=== PATIENT | female | born 1950 | race African-American/Black ===

== ENCOUNTER 2021-09-26 16:13 | Outpatient (CLI) | payer MEDICARE, MEDICAID ==
[2021-09-25 14:42] VITALS: BMI 29.2
[2021-09-26 17:07] LABS: Hemoglobin 9.5 g/dL (12.0-15.5); Mean Corpuscular HGB CONC 31.8 g/dL (32.0-36.0); Mean Corpuscular Hemoglobin 29.4 pg (27.0-33.0); Mean Corpuscular Volume 92.6 fl (81.6-98.3); Mean Platelet Volume 9.9 fl (7.4-10.4); Platelet Count 201 10x3/uL (150-450); RBC Distribution Width 13.4 % (11.5-14.5); Red Blood Cell (RBC) Count 3.23 10x6/uL (3.90-5.03); White Blood Cell (WBC) Count 7.5 10x3/uL (3.5-10.5)
[2021-09-26 17:15] LABS: PTT 26.2 sec (22.0-33.0); Prothrombin Time 10.5 sec (9.5-12.1)
[2021-09-27 21:02] LABS: SARS-CoV-2 PCR by NAA Not Detected (NotDetected)
== END 2021-09-26 16:14 | disposition home or self-care (01) ==
LOC: LABBT 16:13
PROVIDERS: ATTEND Neurological Surgery
DX: Z01.818 Encounter for other preprocedural examination (principal); M50.01 Cervical disc disorder with myelopathy, high cervical region; Z20.822 Contact with and (suspected) exposure to COVID-19
CPT/HCPCS: 85027; 85610; 85730; U0003; U0005; 93005; 93010

== ENCOUNTER 2021-11-29 13:15 | Outpatient (CLI) | payer OTHER, MEDICAID, MEDICARE ==
[2021-11-29 15:15] LABS: Hemoglobin 9.4 g/dL (12.0-15.5); Mean Corpuscular HGB CONC 32.4 g/dL (32.0-36.0); Mean Corpuscular Hemoglobin 29.3 pg (27.0-33.0); Mean Corpuscular Volume 90.3 fl (81.6-98.3); Mean Platelet Volume 10.5 fl (7.4-10.4); Platelet Count 221 10x3/uL (150-450); RBC Distribution Width 14.4 % (11.5-14.5); Red Blood Cell (RBC) Count 3.21 10x6/uL (3.90-5.03); White Blood Cell (WBC) Count 6.2 10x3/uL (3.5-10.5)
[2021-11-29 15:25] LABS: PTT 26.8 sec (22.0-33.0); Prothrombin Time 10.6 sec (9.5-12.1)
== END 2021-11-29 13:16 | disposition home or self-care (01) ==
LOC: LABBT 13:15
PROVIDERS: ATTEND Surgery
DX: Z01.812 Encounter for preprocedural laboratory examination (principal); M43.16 Spondylolisthesis, lumbar region; M48.061 Spinal stenosis, lumbar region without neurogenic claudication; Z20.822 Contact with and (suspected) exposure to COVID-19
CPT/HCPCS: 85027; 85610; 85730; U0003; U0005

== ENCOUNTER 2021-12-02 06:18 | Inpatient (IN) | payer MEDICARE, MEDICAID ==
[2021-11-28 12:58] VITALS: BMI 31.1
[2021-12-02] MEDS ORDERED: Bupivacaine PF 0.5% 30 ML VIAL ONE (06:26)
[2021-12-02] MEDS ORDERED: Thrombin 5000 UNITS/5 ML VIAL ONE (06:26)
[2021-12-02] MEDS ORDERED: EPINEPHrine 1 MG/ML AMP ONE (06:26)
[2021-12-02] MEDS ORDERED: Neomycin-Polymyxin 1 ML AMP ONE (06:26)
[2021-12-02] MEDS ORDERED: fentaNYL Citrate/PF 100 MCG/2 ML SYRINGE ONE ×2 (06:31→10:06)
[2021-12-02] MEDS ORDERED: Milk Of Magnesia 30 ML UDCUP PO PRN (06:36)
[2021-12-02] MEDS ORDERED: HYDROcodone/Acetaminophen 7.5/325 mg Tablet PO PRN (06:36)
[2021-12-02] MEDS ORDERED: Cyclobenzaprine 10 MG TAB PO PRN (06:36)
[2021-12-02] MEDS ORDERED: Bisacodyl 10 MG SUPP PR PRN (06:36)
[2021-12-02] MEDS ORDERED: Ondansetron PF 4 MG/2 ML Vial IVP PRN (06:36)
[2021-12-02] MEDS ORDERED: Acetaminophen 325 MG TAB PO PRN (06:36)
[2021-12-02] MEDS ORDERED: Mag-Al 1200 mg/1200 mg/30 ML UDCUP PO PRN (06:36)
[2021-12-02] MEDS ORDERED: Acetaminophen/Codeine 30-300mg Tablet PO PRN (06:36)
[2021-12-02] MEDS ORDERED: Sodium Chloride 0.9% 100 ML ONE (06:40)
[2021-12-02] MEDS ORDERED: CEFAZOLIN 2 GM VIAL ONE (06:40)
[2021-12-02] MEDS ORDERED: Lidocaine 1% PF 5 ML VIAL ONE (07:05)
[2021-12-02] MEDS ORDERED: Rocuronium Bromide 10 MG/ML (10ML VIAL) ONE (07:05)
[2021-12-02] MEDS ORDERED: Dexamethasone 20 MG/5 ML VIAL ONE (07:05)
[2021-12-02] MEDS ORDERED: Calcium Chloride 1 GM/10 ML Abboject SYRINGE ONE (07:05)
[2021-12-02] MEDS ORDERED: Glycopyrrolate 0.2 MG/ML 5 ML SYRINGE ONE (07:05)
[2021-12-02] MEDS ORDERED: PROPOFOL 200 MG/20 ML VIAL ONE (07:05)
[2021-12-02] MEDS ORDERED: Ondansetron PF 4 MG/2 ML Vial ONE (07:05)
[2021-12-02] MEDS ORDERED: PHENYLEPHRINE-NS 100 MCG/ML 10 ML SYRINGE ONE (07:05)
[2021-12-02] MEDS ORDERED: Vecuronium 10 MG VIAL ONE (07:05)
[2021-12-02] MEDS ORDERED: Labetalol HCl 100 MG/20 ML VIAL ONE (07:05)
[2021-12-02] MEDS ORDERED: Albumin 5% 500 ML ONE (09:42)
[2021-12-02] MEDS ORDERED: Phenylephrine 10 MG/ML VIAL ONE (10:20)
[2021-12-02] MEDS ORDERED: Rocuronium Bromide 50 MG/5 ML VIAL ONE (11:32)
[2021-12-02] MEDS ORDERED: HYDROmorphone 2 MG/ML VIAL ONE (14:32)
[2021-12-02] MEDS ORDERED: Promethazine HCl 25 MG/ML VIAL IM PRN (15:45)
[2021-12-02] MEDS ORDERED: Ondansetron HCl/PF 4 MG/2 ML Vial IVP PRN (15:45)
[2021-12-02] MEDS ORDERED: HYDROmorphone 2 MG/ML VIAL SLOW IVP PRN (15:45)
[2021-12-02] MEDS ORDERED: Promethazine HCl 25 MG/ML VIAL IVPB PRN (15:45)
[2021-12-02 16:17] LABS: Hemoglobin 9.6 g/dL (12.0-16.0)
[2021-12-02 16:26] LABS: Platelet Count 176 thou/uL (130-400)
[2021-12-02] MEDS ORDERED: Fentanyl 100 MCG/2 ML VIAL ONE (16:54)
[2021-12-02] MEDS: Morphine 2 MG/ML VIAL SLOW IVP PRN (21:45)
[2021-12-02] MEDS: CEFAZOLIN 2 GM in Sodium Chloride 0.9% 100 ML IVPB SCH ×2 (21:56→21:58)
[2021-12-02] MEDS: Sodium Chloride 0.9% 1,000 ML IV SCH ×2 (21:56)
[2021-12-03] MEDS: HYDROcodone/Acetaminophen 10/325 mg Tablet PO PRN ×4 (04:46→19:32)
[2021-12-03 05:24] LABS: #Lymphocytes 1.8 thou/uL (1.20-3.40); #Neutrophils 9.1 thou/uL (1.40-6.50); %Basophils 0.2 % (0.0-1.0); %Eosinophils 0.3 % (0.0-10.0); %Lymphocytes 15.3 % (21.0-51.0); %Monocytes 8.2 % (0.0-10.0); Hemoglobin 7.7 g/dL (12.0-16.0); Mean Corpuscular HGB CONC 32.9 g/dL (32.0-36.0); Mean Corpuscular Hemoglobin 30.2 pg (27.0-31.0); Mean Corpuscular Volume 91.7 fL (78.0-98.0); Platelet Count 152 thou/uL (130-400); RBC Distribution Width 13.9 % (11.5-14.5); Red Blood Cell (RBC) Count 2.56 mill/uL (4.20-5.40)
[2021-12-03 05:46] LABS: Anion Gap 13 mmol/L (10-20); BUN (Urea Nitrogen) 24 mg/dL (9.8-20.1); Calc. Creatinine Clearance 49 mL/min (70-130); Calcium 8.3 mg/dL (7.8-10.44); Carbon Dioxide 21 mmol/L (23-31); Chloride 109 mmol/L (98-107); Glucose 107 mg/dL (80-115); Potassium 4.5 mmol/L (3.5-5.1); Sodium 138 mmol/L (136-145)
[2021-12-03] MEDS: CEFAZOLIN 2 GM in Sodium Chloride 0.9% 100 ML IVPB SCH ×3 (07:56→21:28)
[2021-12-03] MEDS: Furosemide 40 MG TAB PO SCH ×2 (08:00→12:54)
[2021-12-03] MEDS: Escitalopram Oxalate 20 mg Tablet PO SCH (08:01)
[2021-12-03] MEDS: Carvedilol 25 MG TAB PO SCH ×2 (08:01→20:01)
[2021-12-03] MEDS: Amlodipine 5 MG TAB PO SCH (08:01)
[2021-12-03] MEDS: Chloraseptic Spray 180 ml Bottle PO PRN ×3 (08:02→21:28)
[2021-12-03] MEDS: Sodium Chloride 0.9% 1,000 ML IV SCH (11:41)
[2021-12-03] MEDS: Atorvastatin Calcium 20 MG TAB PO SCH (20:01)
[2021-12-03] MEDS: Latanoprost 0.005% Ophth Soln 2.5 ml Bottle L EYE SCH (21:32)
[2021-12-04] MEDS: HYDROcodone/Acetaminophen 10/325 mg Tablet PO PRN (00:45)
[2021-12-04] MEDS: Sodium Chloride 0.9% 1,000 ML IV SCH ×2 (00:46→13:23)
[2021-12-04] MEDS: CEFAZOLIN 2 GM in Sodium Chloride 0.9% 100 ML IVPB SCH ×3 (05:54→21:38)
[2021-12-04] MEDS: Morphine 2 MG/ML VIAL SLOW IVP PRN ×5 (06:39→21:38)
[2021-12-04] MEDS ORDERED: Loperamide HCl 2 MG CAP PO PRN (08:51)
[2021-12-04] MEDS ORDERED: Sodium Chloride 0.65% Nasal 44 ML BOT EA NARE PRN (08:51)
[2021-12-04] MEDS ORDERED: Moisturizing Cream (Eucerin) 113 GM JAR TOP PRN (08:51)
[2021-12-04] MEDS ORDERED: Artificial Tear Sol 15 ML BOT EA EYE PRN (08:51)
[2021-12-04] MEDS ORDERED: GUAIFENESIN SF SOLN 200 MG/10 ML UDCUP PO PRN (08:51)
[2021-12-04] MEDS ORDERED: Zolpidem Tartrate 5 MG TAB PO PRN (08:51)
[2021-12-04] MEDS ORDERED: Calcium Carbonate 500 MG ChewTAB PO PRN (08:51)
[2021-12-04] MEDS ORDERED: hydrALAZINE 20 MG/ML VIAL SLOW IVP PRN (08:51)
[2021-12-04] MEDS ORDERED: Cepastat Lozenges 1 LOZ PO PRN (08:51)
[2021-12-04] MEDS: Amlodipine 5 MG TAB PO SCH (09:05)
[2021-12-04] MEDS: Carvedilol 25 MG TAB PO SCH ×2 (09:05→21:38)
[2021-12-04] MEDS: Escitalopram Oxalate 20 mg Tablet PO SCH (09:05)
[2021-12-04] MEDS: Furosemide 40 MG TAB PO SCH ×2 (09:05→15:21)
[2021-12-04 09:22] LABS: #Basophils 0.1 thou/uL (0.0-0.2); #Eosinphils 0.4 thou/uL (0.0-0.7); #Lymphocytes 1.4 thou/uL (1.20-3.40); #Monocytes 0.6 thou/uL (0.11-0.59); #Neutrophils 8.9 thou/uL (1.40-6.50); %Basophils 0.5 % (0.0-1.0); %Monocytes 5.3 % (0.0-10.0); %Neutrophils 78.2 % (42.0-75.0); Hemoglobin 9.8 g/dL (12.0-16.0); Mean Corpuscular HGB CONC 33.4 g/dL (32.0-36.0); Mean Corpuscular Hemoglobin 29.9 pg (27.0-31.0); Mean Corpuscular Volume 89.4 fL (78.0-98.0); Mean Platelet Volume 7.9 fL (7.4-10.4); Platelet Count 133 thou/uL (130-400); Red Blood Cell (RBC) Count 3.28 mill/uL (4.20-5.40); White Blood Cell (WBC) Count 11.3 thou/uL (4.8-10.8)
[2021-12-04 09:41] LABS: Anion Gap 13 mmol/L (10-20); BUN (Urea Nitrogen) 19 mg/dL (9.8-20.1); Calc. Creatinine Clearance 51 mL/min (70-130); Calcium 8.8 mg/dL (7.8-10.44); Carbon Dioxide 24 mmol/L (23-31); Chloride 107 mmol/L (98-107); Glucose 114 mg/dL (80-115); Potassium 4.1 mmol/L (3.5-5.1); Sodium 140 mmol/L (136-145)
[2021-12-04 12:58] LABS: Bacteria/HPF None Seen HPF (None Seen); RBC/HPF 0-3 HPF (0-3); Squamous Epithelial 0-3 HPF (0-3); WBC/HPF 0-3 HPF (0-3)
[2021-12-04] MEDS: Atorvastatin Calcium 20 MG TAB PO SCH (21:38)
[2021-12-04] MEDS: Latanoprost 0.005% Ophth Soln 2.5 ml Bottle L EYE SCH (21:40)
[2021-12-05 05:16] LABS: #Basophils 0.1 thou/uL (0.0-0.2); #Eosinphils 0.3 thou/uL (0.0-0.7); #Lymphocytes 1.8 thou/uL (1.20-3.40); #Monocytes 0.9 thou/uL (0.11-0.59); #Neutrophils 9.1 thou/uL (1.40-6.50); %Basophils 0.7 % (0.0-1.0); %Eosinophils 2.4 % (0.0-10.0); %Lymphocytes 14.6 % (21.0-51.0); %Monocytes 7.3 % (0.0-10.0); %Neutrophils 75.1 % (42.0-75.0); Hemoglobin 8.6 g/dL (12.0-16.0); Mean Corpuscular HGB CONC 33.3 g/dL (32.0-36.0); Mean Corpuscular Volume 89.9 fL (78.0-98.0); Platelet Count 133 thou/uL (130-400); RBC Distribution Width 14.7 % (11.5-14.5); Red Blood Cell (RBC) Count 2.85 mill/uL (4.20-5.40); White Blood Cell (WBC) Count 12.2 thou/uL (4.8-10.8)
[2021-12-05] MEDS: CEFAZOLIN 2 GM in Sodium Chloride 0.9% 100 ML IVPB SCH ×3 (06:03→22:53)
[2021-12-05] MEDS: HYDROcodone/Acetaminophen 10/325 mg Tablet PO PRN ×4 (06:07→20:52)
[2021-12-05] MEDS: Sodium Chloride 0.9% 1,000 ML IV SCH ×2 (06:36→09:55)
[2021-12-05] MEDS: Furosemide 40 MG TAB PO SCH ×2 (08:12→13:10)
[2021-12-05] MEDS: Amlodipine 5 MG TAB PO SCH (08:12)
[2021-12-05] MEDS: Carvedilol 25 MG TAB PO SCH ×2 (08:12→20:52)
[2021-12-05] MEDS: Escitalopram Oxalate 20 mg Tablet PO SCH (08:12)
[2021-12-05] MEDS: Atorvastatin Calcium 20 MG TAB PO SCH (20:52)
[2021-12-05] MEDS: Latanoprost 0.005% Ophth Soln 2.5 ml Bottle L EYE SCH (21:00)
[2021-12-06] MEDS: Sodium Chloride 0.9% 1,000 ML IV SCH ×3 (02:02→23:15)
[2021-12-06] MEDS: CEFAZOLIN 2 GM in Sodium Chloride 0.9% 100 ML IVPB SCH (06:00)
[2021-12-06] MEDS: HYDROcodone/Acetaminophen 10/325 mg Tablet PO PRN ×4 (06:00→21:47)
[2021-12-06] MEDS: Furosemide 40 MG TAB PO SCH ×2 (10:11→15:10)
[2021-12-06] MEDS: Amlodipine 5 MG TAB PO SCH (10:11)
[2021-12-06] MEDS: Carvedilol 25 MG TAB PO SCH ×2 (10:11→21:44)
[2021-12-06] MEDS: Escitalopram Oxalate 20 mg Tablet PO SCH (10:11)
[2021-12-06] MEDS: Latanoprost 0.005% Ophth Soln 2.5 ml Bottle L EYE SCH (21:44)
[2021-12-06] MEDS: Atorvastatin Calcium 20 MG TAB PO SCH (21:44)
[2021-12-06] MEDS: Morphine 2 MG/ML VIAL SLOW IVP PRN (22:41)
[2021-12-07] MEDS: HYDROcodone/Acetaminophen 10/325 mg Tablet PO PRN ×2 (05:49→14:57)
[2021-12-07] MEDS: Amlodipine 5 MG TAB PO SCH (08:15)
[2021-12-07] MEDS: Furosemide 40 MG TAB PO SCH (08:16)
[2021-12-07] MEDS: Carvedilol 25 MG TAB PO SCH (08:16)
[2021-12-07] MEDS: Escitalopram Oxalate 20 mg Tablet PO SCH (08:17)
[2021-12-07] MEDS: Ciprofloxacin 500 MG TAB PO SCH ×2 (11:48→20:32)
[2021-12-07] MEDS: Sodium Chloride 0.9% 1,000 ML IV SCH (20:14)
[2021-12-07] MEDS: Atorvastatin Calcium 20 MG TAB PO SCH (20:32)
[2021-12-07] MEDS: Morphine 2 MG/ML VIAL SLOW IVP PRN (20:33)
[2021-12-07] MEDS: Latanoprost 0.005% Ophth Soln 2.5 ml Bottle L EYE SCH (20:33)
[2021-12-08] MEDS: HYDROcodone/Acetaminophen 10/325 mg Tablet PO PRN ×3 (00:27→21:23)
[2021-12-08] MEDS: Sodium Chloride 0.9% 1,000 ML IV SCH ×2 (08:54→20:30)
[2021-12-08] MEDS: Escitalopram Oxalate 20 mg Tablet PO SCH (08:55)
[2021-12-08] MEDS: Ciprofloxacin 500 MG TAB PO SCH ×2 (08:55→21:23)
[2021-12-08] MEDS: Morphine 2 MG/ML VIAL SLOW IVP PRN (15:36)
[2021-12-08] MEDS: Atorvastatin Calcium 20 MG TAB PO SCH (21:23)
[2021-12-08] MEDS: Latanoprost 0.005% Ophth Soln 2.5 ml Bottle L EYE SCH (21:32)
[2021-12-09] MEDS: HYDROcodone/Acetaminophen 10/325 mg Tablet PO PRN ×3 (06:55→21:07)
[2021-12-09] MEDS: Carvedilol 6.25 MG TAB PO SCH ×2 (08:22→16:27)
[2021-12-09] MEDS: Amlodipine 5 MG TAB PO SCH (08:22)
[2021-12-09] MEDS: Escitalopram Oxalate 20 mg Tablet PO SCH (08:22)
[2021-12-09] MEDS: Ciprofloxacin 500 MG TAB PO SCH ×2 (08:23→21:05)
[2021-12-09] MEDS: Morphine 2 MG/ML VIAL SLOW IVP PRN (12:55)
[2021-12-09] MEDS: Atorvastatin Calcium 20 MG TAB PO SCH (21:04)
[2021-12-09] MEDS: Latanoprost 0.005% Ophth Soln 2.5 ml Bottle L EYE SCH (21:05)
[2021-12-09] MEDS: Mirtazapine 15 MG Soltab PO SCH (21:05)
[2021-12-10] MEDS: HYDROcodone/Acetaminophen 10/325 mg Tablet PO PRN ×2 (09:00→14:20)
[2021-12-10] MEDS: Ciprofloxacin 500 MG TAB PO SCH ×2 (09:28→20:19)
[2021-12-10] MEDS: Amlodipine 5 MG TAB PO SCH (09:29)
[2021-12-10] MEDS: Escitalopram Oxalate 20 mg Tablet PO SCH (09:29)
[2021-12-10] MEDS: Carvedilol 6.25 MG TAB PO SCH ×2 (09:36→17:59)
[2021-12-10] MEDS: Morphine 2 MG/ML VIAL SLOW IVP PRN (20:17)
[2021-12-10] MEDS: Atorvastatin Calcium 20 MG TAB PO SCH (20:19)
[2021-12-10] MEDS: Mirtazapine 15 MG Soltab PO SCH (20:19)
[2021-12-10] MEDS: Latanoprost 0.005% Ophth Soln 2.5 ml Bottle L EYE SCH (20:19)
[2021-12-11] MEDS: HYDROcodone/Acetaminophen 10/325 mg Tablet PO PRN ×3 (00:19→12:06)
[2021-12-11] MEDS: Carvedilol 6.25 MG TAB PO SCH (08:09)
[2021-12-11] MEDS: Escitalopram Oxalate 20 mg Tablet PO SCH (08:10)
[2021-12-11] MEDS: Amlodipine 5 MG TAB PO SCH (08:10)
[2021-12-11] MEDS: Ciprofloxacin 500 MG TAB PO SCH (08:10)
[2021-12-11 08:36] VITALS: BP 160/69; TEMP 98.2
== END 2021-12-11 16:50 | DRG 454 ==
LOC: SDC 06:18 → MSONC 06:47
PROVIDERS: ADMIT Neurological Surgery; ATTEND Hospitalist
PROC: 0SG00AJ Fusion of Lumbar Vertebral Joint with Interbody Fusion Device, Posterior Approach, Anterior Column, Open Approach (ICD-10-PCS; principal; 2021-12-02)
PROC: 0SG1071 Fusion of 2 or more Lumbar Vertebral Joints with Autologous Tissue Substitute, Posterior Approach, Posterior Column, Open Approach (ICD-10-PCS; 2021-12-02)
PROC: 0QP004Z Removal of Internal Fixation Device from Lumbar Vertebra, Open Approach (ICD-10-PCS; 2021-12-02)
PROC: 01NB0ZZ Release Lumbar Nerve, Open Approach (ICD-10-PCS; 2021-12-02)
PROC: 30233N1 Transfusion of Nonautologous Red Blood Cells into Peripheral Vein, Percutaneous Approach (ICD-10-PCS; 2021-12-02)
DX: M48.062 Spinal stenosis, lumbar region with neurogenic claudication (principal); N17.9 Acute kidney failure, unspecified; N39.0 Urinary tract infection, site not specified; B96.5 Pseudomonas (aeruginosa) (mallei) (pseudomallei) as the cause of diseases classified elsewhere; M43.16 Spondylolisthesis, lumbar region; Z20.822 Contact with and (suspected) exposure to COVID-19; M19.90 Unspecified osteoarthritis, unspecified site; I10 Essential (primary) hypertension; G89.29 Other chronic pain; I34.0 Nonrheumatic mitral (valve) insufficiency; B96.20 Unspecified Escherichia coli [E. coli] as the cause of diseases classified elsewhere; H40.9 Unspecified glaucoma; E78.5 Hyperlipidemia, unspecified; D64.9 Anemia, unspecified; I95.89 Other hypotension; Z86.73 Personal history of transient ischemic attack (TIA), and cerebral infarction without residual deficits; Z79.899 Other long term (current) drug therapy; Z98.1 Arthrodesis status; Z79.82 Long term (current) use of aspirin; Z88.8 Allergy status to other drugs, medicaments and biological substances
CPT/HCPCS: 36415; 36430; 71045; 76000; 80048; 81015; 85014; 85018; 85025; 85049; 86850; 86900; 86901; 87077; 87086; 87186; 93970; C1713; C1768; C1776; J0171; J0360; J0690; J1100; J1170; J2270; J2370; J2405; J2704; J3010; J3370; J3490; J7050; P9016; P9045; S0020